=== PATIENT | female | born 1970 | race Caucasian/White ===

== ENCOUNTER 2019-11-24 09:43 | Emergency (ER) | payer BC ==
[2019-11-24] MEDS ORDERED: Ketorolac 30 MG/ML SDV IVPUSH ONE (11:13)
[2019-11-24] MEDS ORDERED: diphenhydrAMINE 50 MG/ML SDV IVPUSH ONE (11:13)
[2019-11-24] MEDS ORDERED: Sodium Chloride 0.9% 10 ML Syringe FLUSH PRN (11:13)
[2019-11-24] MEDS ORDERED: Sodium Chloride 0.9% 1,000 ML IV ONE (11:13)
[2019-11-24] MEDS ORDERED: Metoclopramide 10 MG/2 ML SDV IVPUSH ONE (11:13)
--- NOTE | 2019-11-24 11:34 | EDM.PDOC ---
ED HPI GENERAL MEDICAL PROBLEM - General Chief Complaint: Headache Stated Complaint: MIGRAINE AND VOMITING X 2 DAYS Time Seen by Provider: 11/24/19 11:06 Source of Information: Reports: Patient, RN Notes Reviewed History Limitations: Reports: No Limitations - History of Present Illness INITIAL COMMENTS - FREE TEXT/NARRATIVE: Patient is a 49-year-old female who presents to the ED for the evaluation of her nausea/vomiting and migraine headache. Patient notes that she has been vomiting for the last 2 days, states has not been able to keep much down for food or fluids. She states that this started at around noon on Friday. She has a history of migraines, and the migraine shortly followed. She states that her headache is typical for her migraines, but seems a little bit worse than normal. It is a generalized throbbing, with pain in the back of her head. She did not take any sort of pain medication for her headache. She does not recount eating any bad foods, that would have precipitated the vomiting, and states that her ate what she ate and he did not get sick. She states that she has hot and cold flashes but no documented fever or chills, she is not complaining of any cough shortness of breath, she is not had any diarrhea. She does state that she has prior balance issues or issues with walking where she feels unstable that she is working with a neurologist for. She states that they have yet to find an answer. Her primary care provider is Frances Spangler. Patient denies any sort of blurred vision or double vision, any spots in her vision, she states she has light and sound sensitive with her migraine. Headache Pain Score (Numeric/FACES): 10 - Related Data Allergies Allergy/AdvReac Type Severity Reaction Status Date / Time No Known Allergies Allergy Verified 11/24/19 10:06 Past Medical History Neurological History: Reports: Other (See Below) (balance/gait issues, working with neirologist) Psychiatric History: Reports: Anxiety, Depression - Past Surgical History GI Surgical History: Reports: Appendectomy, Cholecystectomy Social & Family History - Tobacco Use Smoking Status *Q: Never Smoker - Caffeine Use Caffeine Use: Reports: None ED ROS GENERAL - Review of Systems Review Of Systems: Comprehensive ROS is negative, except as noted in HPI. - Physical Exam Exam: See Below Exam Limited By: No Limitations General Appearance: Alert, WD/WN, No Apparent Distress Eye Exam: Bilateral Eye: EOMI, Normal Inspection, PERRL Head Exam: Atraumatic, Normocephalic Neck: Normal Inspection, Supple, Non-Tender, Full Range of Motion Respiratory/Chest: No Respiratory Distress, Lungs Clear, Normal Breath Sounds, No Accessory Muscle Use, Chest Non-Tender Cardiovascular: Normal Peripheral Pulses, Regular Rate, Rhythm, No Murmur GI/Abdominal: Normal Bowel Sounds, Soft, Non-Tender, No Distention, No Mass Neuro Exam (Abbreviated): Alert, Oriented, Normal Cognition, No Motor/Sensory Deficits Extremities: Normal Inspection, Normal Capillary Refill Psychiatric: Normal Affect, Normal Mood Skin Exam: Warm, Dry, Intact, Normal Color, No Rash Course - Vital Signs Last Recorded V/S: Last Vital Signs Temp 98.5 F 11/24/19 10:02 Pulse 73 11/24/19 10:02 Resp 18 11/24/19 10:02 BP 136/99 H 11/24/19 10:02 Pulse Ox 97 11/24/19 10:02 - Orders/Labs/Meds Orders: Active Orders 24 hr Category Date Time Status Peripheral IV Care [RC] . DIRECTED Care 11/24/19 11:13 Active COMPREHENSIVE METABOLIC PN,CMP [CHEM] Stat Lab 11/24/19 11:13 Ordered MAGNESIUM [CHEM] Stat Lab 11/24/19 11:13 Ordered Sodium Chloride 0.9% [Saline Flush] Med 11/24/19 11:13 Active 10 ml FLUSH ASDIRECTED PRN Peripheral IV Insertion Adult [OM.PC] Routine Oth 11/24/19 11:13 Ordered Medication Orders Sodium Chloride (Saline Flush) 10 ml FLUSH ASDIRECTED PRN PRN Reason: Keep Vein Open Last Admin: 11/24/19 11:42 Dose: 10 ml Documented by: TRENT Labs: Laboratory Tests 11/24/19 Range/Units 12:30 WBC 8.09 (3.98-10.04) K/mm3 RBC 5.17 (3.98-5.22) M/mm3 Hgb 13.9 (11.2-15.7) gm/dl Hct 43.5 (34.1-44.9) % MCV 84.1 (79.4-94.8) fl MCH 26.9 (25.6-32.2) pg MCHC 32.0 L (32.2-35.5) g/dl RDW Std Deviation 43.5 (36.4-46.3) fL Plt Count 453 H (182-369) K/mm3 MPV 8.3 L (9.4-12.3) fl Neut % (Auto) 67.7 (34.0-71.1) % Lymph % (Auto) 22.6 (19.3-51.7) % [place] % (Auto) 8.9 (4.7-12.5) % Eos % (Auto) 0.2 L (0.7-5.8) Baso % (Auto) 0.4 (0.1-1.2) % Neut # (Auto) 5.47 (1.56-6.13) K/mm3 Lymph # (Auto) 1.83 (1.18-3.74) K/mm3 [place] # (Auto) 0.72 H (0.24-0.36) K/mm3 Eos # (Auto) 0.02 L (0.04-0.36) K/mm3 Baso # (Auto) 0.03 (0.01-0.08) K/mm3 Meds: Medications Generic Name Dose Route Start Last Admin Trade Name Freq PRN Reason Stop Dose Admin Sodium Chloride 10 ml 11/24/19 11:13 11/24/19 11:42 Saline Flush FLUSH 10 ml ASDIRECTED PRN Administration Keep Vein Open Discontinued Medications Generic Name Dose Route Start Last Admin Trade Name Freq PRN Reason Stop Dose Admin Diphenhydramine HCl 25 mg 11/24/19 11:13 11/24/19 11:40 Benadryl IVPUSH 11/24/19 11:14 25 mg ONETIME ONE Administration Sodium Chloride 1,000 mls @ 999 mls/hr 11/24/19 11:13 11/24/19 11:36 Normal Saline IV 11/24/19 12:13 999 mls/hr ASDIRECTED ONE Administration Ketorolac Tromethamine 30 mg 11/24/19 11:13 11/24/19 11:42 Toradol IVPUSH 11/24/19 11:14 30 mg ONETIME ONE Administration Metoclopramide HCl 10 mg 11/24/19 11:13 11/24/19 11:38 Reglan IVPUSH 11/24/19 11:14 10 mg ONETIME ONE Administration - Re-Assessments/Exams Free Text/Narrative Re-Assessment/Exam: 11/24/19 11:34 Patient presents to the ED for the evaluation of her headache, and vomiting. Unsure as to what would have caused the vomiting at this time. Basic labs will be obtained, along with IV fluids, Toradol Benadryl and Reglan for her headache. 11/24/19 12:50 Patient was reassessed at bedside, states she is feeling much better. There is a delay at lab today, sitter, well to come draw her. Labs are still pending. As she is already gotten 1 bag of fluids for headache medications, I do suspect if there is any abnormalities on the metabolic panel, that they would have been corrected with the fluids. We will try to get the patient home with some nausea medications, as she may have had a gastroenteritis causing her vomiting. Departure - Departure Time of Disposition: 12:52 Disposition: Home, Self-Care 01 Condition: Good Clinical Impression: Gastroenteritis Migraine Qualifiers: Migraine type: unspecified Status migrainosus presence: without status migrainosus Intractability: not intractable Qualified Code(s): G43.909 - Migraine, unspecified, not intractable, without status migrainosus - Discharge Information *PRESCRIPTION DRUG MONITORING PROGRAM REVIEWED*: No *COPY OF PRESCRIPTION DRUG MONITORING REPORT IN PATIENT DOROTHY: No Instructions: Viral Gastroenteritis, Adult, [id number], Migraine Headache, [id number] Referrals: Meagan Spangler, [employer] [Primary Care Provider] - Forms: ED Department Discharge Additional Instructions: You were evaluated in the ED for your headache and nausea/vomiting. Laboratory evaluation done at today's visit, demonstrates no focal abnormalities. It is likely that you could have been suffering from acute viral gastroenteritis causing the nausea and vomiting. You have been given a few ta blets of Zofran for nausea management at home, please take as directed, 1 tab dissolvable under your tongue every 8 hours as needed for further nausea symptoms. You were given a combination of medications and IV fluid for management. This did seem to provide you pretty good relief of your symptoms. Recommend that you go home and rest in a quiet, darkened room. Try also to keep well hydrated. Please return to the ED if your symptoms should change or worsen. Sepsis Event Note (ED) - Evaluation Sepsis Screening Result: No Definite Risk - Focused Exam Vital Signs: Vital Signs Temp Pulse Resp BP Pulse Ox 11/24/19 10:02 98.5 F 73 18 136/99 H 97 - My Orders Last 24 Hours: My Active Orders 11/24/19 11:13 Peripheral IV Care [RC] . DIRECTED COMPREHENSIVE METABOLIC PN,CMP [CHEM] Stat MAGNESIUM [CHEM] Stat Sodium Chloride 0.9% [Saline Flush] 10 ml FLUSH ASDIRECTED PRN Peripheral IV Insertion Adult [OM.PC] Routine - Assessment/Plan Last 24 Hours: My Active Orders 11/24/19 11:13 Peripheral IV Care [RC] . DIRECTED COMPREHENSIVE METABOLIC PN,CMP [CHEM] Stat MAGNESIUM [CHEM] Stat Sodium Chloride 0.9% [Saline Flush] 10 ml FLUSH ASDIRECTED PRN Peripheral IV Insertion Adult [OM.PC] Routine
== END 2019-11-24 13:29 | disposition home or self-care (01) ==
LOC: EDSEX 09:43 → JD.ED 09:43
DX: K52.9 Noninfective gastroenteritis and colitis, unspecified (principal); G43.909 Migraine, unspecified, not intractable, without status migrainosus
CPT/HCPCS: 36415; 80053; 83735; 85025; 96361; 96374; 96375; 99284; J1200; J1885; J2765; J7030